=== PATIENT | female | born 1975 | race Two or more races ===

== ENCOUNTER 2019-07-12 14:52 | Emergency (ER) | payer MEDICAID ==
[~2019-07-12] VITALS: Ht 162.6 cm; Wt 70.8 kg
[2019-07-12 15:05] VITALS: BP 145/81
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
[2019-07-12] MEDS ORDERED: ACETAMINOPHEN ES 500 MG TABLET ONE (15:51)
[2019-07-12] MEDS ORDERED: IBUPROFEN 600 MG TABLET PO ONE ×2 (15:51→16:00)
[2019-07-12] MEDS ORDERED: ACETAMINOPHEN ES 500 MG TABLET PO ONE (16:00)
== END 2019-07-12 17:11 | disposition home or self-care (01) ==
LOC: ER 14:53
DX: S50.11XA Contusion of right forearm, initial encounter (principal); V43.62XA Car passenger injured in collision with other type car in traffic accident, initial encounter; Y93.89 Activity, other specified; Y92.413 State road as the place of occurrence of the external cause; Y99.8 Other external cause status
CPT/HCPCS: 73090-TC